=== PATIENT | male | born 1960 | race Caucasian/White ===

== ENCOUNTER 2016-11-09 20:41 | Emergency (ER) | payer OTHER ==
--- NOTE | ~2016-11-09 | CR63 ---
[facility] A Service of [facility] / [facility] RADIOLOGY TEXT RESULTS PATIENT: ELDER CHEEK LOCATION: SED : 64 UNIT #: [id number] AGE: [address]: DEBORA BUTCHER SEX: M ORDER DR: [id number] [address] [address] [id number] MR#: [id number] #: [id number] NAME: ELDER CHEEK : 1960 SEX: M STUDY DATE/TIME: 11/09/2016 22:20 UNIT: SED ROOM: STUDY DESCRIPTION: CR Chest 2 View Attending Physician: Debora Butcher Aprn Ordering Physician: Debora Butcher Aprn Primary Care Physician: Shauna Malin Aprn MEDICAL IMAGING REPORT This report is preliminary unless electronic signature is present. EXAM Chest x-ray 2 views HISTORY Right-sided pain worse with movement and inspiration. Patient has had symptoms for 10 days. No known injury but has had frequent coughing due to COPD. Patient has a history of hypertension, emphysema and pleurisy. COMMENT Two views of the chest are reviewed. The comparison study is from 04/03/2015. There is a mild pectus deformity. There is no evidence for pleural effusion. The lungs are hyperinflated and there is distortion of pulmonary parenchymal architecture consistent with chronic obstructive lung disease history. Emphysematous changes are best appreciated at apices. The heart size is normal. There is no acute appearing parenchymal infiltrate or acute congestive failure. There is no pneumothorax. Evidence for old granulomatous disease noted. IMPRESSION 1. No active disease is seen in the chest. 2. Findings of chronic obstructive lung disease. Dictated by... Azra Grewal M.D. THIS IS AN ELECTRONICALLY VERIFIED REPORT Azra Grewal M.D. at 11/10/2016 10:38 AM [facility] A Service of [facility] / [facility] RADIOLOGY TEXT RESULTS PATIENT: ELDER CHEEK LOCATION: SED : 64 UNIT #: [id number] AGE: [address]: DEBORA BUTCHER SEX: M ORDER DR: THO/isaiah TD: 11/10/2016 06:37 JOB #: [id number] MEDICAL IMAGING REPORT Page 1 of 1
[~2016-11-09 20:41] MED LIST: ACETAMINOPHEN PO; ADULT MUCU100 MG/5 M PO; ADVAIR 500-501 EACH IH; ALBUTEROL 0.5ML NEB; ALBUTEROL17 GM; ALBUTEROL17 GM INH; ALEVE220 M1 PO; AMOXICILLIN; AMOXICILLIN500 M1 PO; ANEXSIA 7.5/3251 TA1 PO; ANUSOL SUPP1 SUPP PR; ASPIRIN81 M2 PO; ASPIRIN81 MG PO; ATARAX PO; AUGMENTIN875 MG PO; BACLOFEN10 MG PO; BACTRIM 400-801 TA1 PO; BAYER CHEWABLE81 MG; BENTYL20 M1 PO; BENZONATATE200 M1 PO; CIPRO PO; CLARITIN10 M2 PO; DICLOFENAC PO; DOXYCYCLINE HY100 M3 PO; EXCEDRIN EXTRA1 TAB PO; FAMOTIDINE PO; FLEXERIL PO; FLEXERIL10 M1 PO; FLEXERIL10 MG PO; FLOVENT DI50 MCG/DIS INH; HYDROCODON-ACE1 EAC7 PO; HYDROCORTISONE TOP; IBUPROFEN PO; IBUPROFEN400 MG PO; IBUPROFEN600 MG PO; IBUPROFEN800 MG PO; LEVAQUIN750 M1 PO; LIORESAL10 MG PO; LISINOPRIL5 MG PO; LORTAB 7.5-5001 TAB PO; LORTAB 7.51 TAB 7.5/; MEDROL PO; MEDROL4 MG/DOSE- PO; METRONIDAZOLE PO; MOBIC PO; MOTRIN400 M1 PO; MULTI-VITAMIN1 EAC1 PO; NAPROSYN500 MG PO; NEXIUM PO; NICOTINE TRANSD14 MG EXT; NICOTINE TRANSD21 MG EXT; NILSTAT PO; NORCO 5/325 TAB1 TAB PO; NORFLEX100 M1 PO; ORUDIS75 M1 PO; PERIDEX480 ML PO; PHENERGAN W/CO120 ML PO; PHENERGAN25 M1 DOB; PHENERGAN25 M1 PO; PREDNISONE PO; PREDNISONE1 MG PO; PREDNISONE10 MG/DOSE PO; PREVACID PO; PRILOSEC20 M1 PO; PRILOSEC20 MG PO; PROMETHAZINE D118 ML PO; PULMICORT180 MCG/A1 IH; RANITIDINE HCL150 M1 PO; ROBAXIN 750750 M1 PO; ROPINIROLE HCL2 M1 PO; SPIRIVA18 MCG INH; STRIVERDI RESPIM4 GM INH; TESSALON200 MG PO; TYLENOL #3 PO; TYLENOL325 M1 PO; VIBRAMYCIN100 M1 PO; VISTARIL PO; VITAMIN D250000 UNIT PO; VOLTAREN50 MG PO; VOLTAREN75 MG PO; ZANAFLEX4 M1 PO; ZANTAC150 MG PO; ZESTRIL5 MG PO; ZOFRAN ODT4 MG/UDTAB PO; ZYRTEC10 M2 PO; [UNRECOGNIZED DRUG - OTHER] PO
== END 2016-11-09 23:11 | disposition home or self-care (01) ==
LOC: SED 20:41
DX: R07.89 Other chest pain (principal); R05 Cough; F17.210 Nicotine dependence, cigarettes, uncomplicated; I10 Essential (primary) hypertension; J44.9 Chronic obstructive pulmonary disease, unspecified; Z88.8 Allergy status to other drugs, medicaments and biological substances; Z79.899 Other long term (current) drug therapy; Z89.429 Acquired absence of other toe(s), unspecified side
CPT/HCPCS: 71020; 99285